=== PATIENT | female | born 1960 | race Caucasian/White ===

== ENCOUNTER 2017-10-21 18:22 | Emergency (ER) | payer BC ==
[2017-10-21] MEDS: ACETAMINOPHEN 500 MG TAB PO (21:45)
[2017-10-21] MEDS: IBUPROFEN 800 MG TAB PO (21:45)
[2017-10-21 21:55] LABS: ADD UMIC YES; UR ASCORBIC ACID NEGATIVE (NEGATIVE); UR BACTERIA FEW /HPF (NONE SEEN); UR BILIRUBIN (Dip) NEGATIVE (NEGATIVE); UR BLOOD (Dip) 1+ mg/dL (NEGATIVE); UR CLARITY SLIGHTLY CLOUDY (CLEAR); UR COLOR YELLOW (YELLOW); UR GLUCOSE (Dip) 1+ mg/dL (NEGATIVE); UR KETONES (Dip) NEGATIVE (NEGATIVE); UR LEUKOCYTE ESTERASE (Dip) NEGATIVE Leu/ul (NEGATIVE); UR MUCUS FEW /HPF (NONE SEEN); UR NITRITE (Dip) NEGATIVE (NEGATIVE); UR RBC 1 /HPF (0-5); UR SPECIFIC GRAVITY (Dip) 1.018 (1.003-1.030); UR SQUAMOUS EPITHELIAL CELL FEW /HPF (FEW); UR TOTAL PROTEIN (Dip) 2+ mg/dl (NEGATIVE); UR UROBILINOGEN (Dip) NEGATIVE (NEGATIVE); UR WBC 2 /HPF (0-5)
== END 2017-10-21 23:58 | disposition home or self-care (01) ==
LOC: FTE 18:22
DX: R35.0 Frequency of micturition (principal); J32.9 Chronic sinusitis, unspecified; R07.9 Chest pain, unspecified
CPT/HCPCS: 81001; 87086; 87400; 93005; 99284-25

== ENCOUNTER 2018-03-13 06:21 | Day surgery (SDC) | payer BC ==
[2018-03-13] MEDS ORDERED: MIDAZOLAM 1 MG/ML 2 ML INJ (08:55)
[2018-03-13] MEDS ORDERED: FENTAnyl 50 MCG/ML VIAL (08:55)
== END 2018-03-13 11:20 | disposition home or self-care (01) ==
LOC: GIL 06:21
DX: Z12.11 Encounter for screening for malignant neoplasm of colon (principal); K64.4 Residual hemorrhoidal skin tags; E11.9 Type 2 diabetes mellitus without complications; E03.9 Hypothyroidism, unspecified
CPT/HCPCS: 45378; 82962

== ENCOUNTER 2018-08-21 19:15 | Emergency (ER) | payer MEDICAID, BC, OTHER ==
[2018-08-21] MEDS: IPRATROPIUM (NEB) 0.5 MG/2.5 ML AMP NEB (20:45)
[2018-08-21] MEDS: ALBUTEROL 0.083% (NEB) 2.5 MG/3 ML AMP NEB (20:46)
[2018-08-21] MEDS: DEXAMETHASONE 10 MG/ML 1 ML INJ PO (20:56)
== END 2018-08-21 21:18 | disposition home or self-care (01) ==
LOC: FTE 19:15
DX: J40 Bronchitis, not specified as acute or chronic (principal)
CPT/HCPCS: 71045; 94664; 99284-25

== ENCOUNTER 2018-09-02 20:44 | Emergency (ER) | payer MEDICAID ==
[2018-09-02] MEDS: IPRATROPIUM (NEB) 0.5 MG/2.5 ML AMP HHN (22:06)
[2018-09-02] MEDS: ALBUTEROL 0.083% (NEB) 2.5 MG/3 ML AMP HHN (22:06)
[2018-09-02] MEDS: DEXAMETHASONE 10 MG/ML 1 ML INJ IM (22:29)
== END 2018-09-03 00:48 | disposition home or self-care (01) ==
LOC: FTE 09-03 00:48
DX: R05 Cough (principal); E11.9 Type 2 diabetes mellitus without complications; Z79.84 Long term (current) use of oral hypoglycemic drugs
CPT/HCPCS: 71045; 94664; 96372; 99284-25

== ENCOUNTER 2019-02-13 21:10 | Emergency (ER) | payer MEDICAID | END 2019-02-13 23:11 | disposition home or self-care (01) | LOC: FTE 23:11 | DX: J20.9 Acute bronchitis, unspecified (principal); E11.9 Type 2 diabetes mellitus without complications | CPT/HCPCS: 99283; Z7502 ==